=== PATIENT | female | born 1990 | race African-American/Black ===

== ENCOUNTER 2021-02-12 13:55 | Outpatient (CLI) | payer OTHER | END 2021-02-12 13:56 | disposition home or self-care (01) | LOC: CSHRAD 13:55 | PROVIDERS: ATTEND Family Medicine | DX: M25.561 Pain in right knee (principal); M23.41 Loose body in knee, right knee ==

== ENCOUNTER 2022-06-03 16:54 | Emergency (ER) | payer OTHER | END 2022-06-03 19:07 | disposition home or self-care (01) | LOC: CSHERS 16:54 | DX: O34.81 Maternal care for other abnormalities of pelvic organs, first trimester (principal); N83.202 Unspecified ovarian cyst, left side; O20.8 Other hemorrhage in early pregnancy; Z3A.10 10 weeks gestation of pregnancy ==

== ENCOUNTER 2025-06-14 14:24 | Emergency (ER) | payer OTHER ==
[2025-06-14] MEDS ORDERED: Ketorolac Tromethamine 30 MG (1 mL) VIAL ONE (15:15)
== END 2025-06-14 17:29 | disposition home or self-care (01) ==
LOC: CSHERS 14:24
DX: M25.562 Pain in left knee (principal); M23.42 Loose body in knee, left knee
CPT/HCPCS: 96372; J1885